=== PATIENT | male | born 1970 | race Caucasian/White ===

== ENCOUNTER → 2016-12-17 | Day surgery (SDC) | payer OTHER ==
[~2016-12-17] VITALS: Ht 182.9 cm; Wt 102.1 kg
[~2016-12-17] MED LIST: ACETAMINOPHEN 1000 MG/100 ML VIAL IV ONE; ACETAMINOPHEN/HYDROcodone 325 MG/7.5 MG TAB ONE; BUPIVACAINE/EPINEPHRINE 0.25% 50 ML VIAL ONE; BUPIVACAINE/EPINEPHRINE 0.5% PF 10 ML VIAL ONE; CHLORHEXIDINE GLUCONATE 2 % 1 PACK (2 CLOTHS) TOPICAL PRN; DEXAMETHASONE SOD PHOS 4 MG/ML VIAL ONE; DO NOT ADM ANY ANTICOAGULANT DRUGS PRN; FAMOTIDINE 20 MG/2 ML VIAL ONE; GELFOAM SIZE 100 ONE; GENTAMICIN SULFATE 80 MG/2 ML VIAL ONE; HYDR-3366 PO; HYDROmorphone HCL PF 2 MG/ML VIAL ONE; INSULIN HUMAN REGULAR 1,000 UNITS/10 ML VIAL SQ PRN; LACTATED RINGER'S 1000 ML INJ 1,000 ML IV ONE; LACTATED RINGER'S 1000 ML IV PRN; METOPROLOL TARTRATE 25 MG TAB PO PRN; MIDAZOLAM HCL 2 MG/2 ML VIAL ONE; NEOSTIGMINE 3 MG/3 ML SYR IV ONE; ONDANSETRON HCL 4 MG/2 ML VIAL IV PUSH ONE; POVIDONE IODINE 5% (ANTISEPSIS KIT) 4 APPLICATIONS EACH NARE PRN; POVIDONE IODINE 7.5% SCRUB 118 ML BOTTLE TOPICAL SCH; PROMETHAZINE INJ 25 MG/ML VIAL ONE; PROPOFOL 200 MG/20 ML AMP IV ONE; SODIUM CHLORID 0.9% 500 ML IV PRN; TRIA1SPR6 EACH NARE; TYLE325T PO; ceFAZolin 2 GM PREMIX 50 ML IV SCH; ceFAZolin INJ 1,000 MG VIAL IV ONE; fentaNYL CITRATE 250 MCG/5 ML AMP ONE
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
[2016-12-17 11:03] VITALS: BP 140/89; PULSE 75; RESP 16; TEMP 98.3; O2SAT 75
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
--- NOTE | 2016-12-17 17:17 | RADRPT ---
EXAM DATE/TIME: 12/17/2016 15:21 [facility] COMPARISON: No previous studies available for comparison. INDICATIONS : Orif right clavicle MEDICAL HISTORY : Fx right clavicle SURGICAL HISTORY : None. ENCOUNTER: Initial ACUITY: 1 day PAIN SCORE: Non-responsive. LOCATION: Right Clavicle. FINDINGS: 3 fluoroscopy images are submitted for review. Plate and screw fixation of comminuted right clavicle fracture. There is anatomic alignment with intact hardware. Visualized acromioclavicular joint appear s grossly maintained. The sternoclavicular joint is not sufficiently visualized. CONCLUSION: 1. Status post plate and screw fixation of comminuted right clavicle fracture. Christ Stoner MD on December 17, 2016 at 17:14 Board Certified Radiologist. This report was verified electronically.
[2016-12-17 17:35] VITALS: BP 128/78; PULSE 76; RESP 20; TEMP 97.3; O2SAT 94
== END | disposition home or self-care (01) ==
LOC: HSDC 10:28
PROVIDERS: ATTEND Orthopaedic Surgery Orthopaedic Surgery of the Spine
DX: S42.001A Fracture of unspecified part of right clavicle, initial encounter for closed fracture (principal); V19.9XXA Pedal cyclist (driver) (passenger) injured in unspecified traffic accident, initial encounter
CPT/HCPCS: 00450; 23515; 73000; 76000; C1713; J0131; J0690; J1100; J1170; J1580; J2250; J2405; J2550; J2710; J3010; J7120